=== PATIENT | male | born 1970 | race Caucasian/White ===

== ENCOUNTER 2018-11-08 13:09 | Emergency (ER) | payer SELFPAY ==
[~2018-11-08] VITALS: Ht 152.4 cm; Wt 68.0 kg
[2018-11-08 13:10] VITALS: BP 151/113
--- NOTE | 2018-11-08 13:28 | NUR ---
PT PLACED IN BED 3 BY EMS.
--- NOTE | 2018-11-08 13:29 | NUR ---
47/M biba from home with complaints of headache since this morning. Per EMS fire stated pt was altered due to ETOH. Pt admits to alcohol ingestion last night, states he had 4 beers only but per EMS, family told them that he had much more. called 911. Pt states his family called because he didn't get out of bed. Pt is AOX4, delayed speech, patient answering questions appropriately and complains of headache. Pt arrived with [address] to left AC with IV fluids infusing approximately 50cc. Family last saw patient normal last night around 1999. BS [employer] 157.
--- NOTE | 2018-11-08 13:30 | NUR ---
NIHSS: 1a. ALOC - 0 1b. LOC QUESTIONS- 2 2a. LOC COMMANDS- 0 2b. BEST GAZE- 0 3. VISUAL GREENE- 0 4. FACIAL PARESIS- 1 5A. LEFT- 0 5B. RIGHT- 3 6A LEFT- 0 6B. RIGHT- 3 7. LIMB ATAXIA- 1 8. SENSORY- 1 9. BEST LANGUAGE- 0 10. DYSARTHRIA- 1 11. EXTENCTION AND INATTENTION- 0 Total= 12
--- NOTE | 2018-11-08 13:40 | NUR ---
Dr. Pardo evaluating patient at bedside.
--- NOTE | 2018-11-08 14:22 | NUR ---
[facility] at bedside for transport.
[2018-11-08 14:28] VITALS: BP 142/97
--- NOTE | 2018-11-08 14:28 | NUR ---
REPORT GIVEN TO SULLY HAWKINS AT [facility]. [facility] TRANSPORTED PATIENT VIA AMBULANCE.
== END 2018-11-08 14:28 | disposition short-term general hospital (02) ==
LOC: MED 13:09
DX: H53.8 Other visual disturbances (principal); R51 Headache; R42 Dizziness and giddiness; R53.1 Weakness; E11.9 Type 2 diabetes mellitus without complications
CPT/HCPCS: 82948; 99285